=== PATIENT | female | born 1990 | race Two or more races ===

== ENCOUNTER 2017-07-16 12:58 | Emergency (ER) | payer SELFPAY ==
[~2017-07-16] VITALS: Ht 160 cm; Wt 77.0 kg
[2017-07-16] MEDS ORDERED: FLUO10CA25 PO (13:19)
[2017-07-16 14:35] VITALS: BP 110/71
== END 2017-07-17 03:31 | disposition left against medical advice (07) ==
LOC: ER 07-17 03:31
DX: Z53.21 Procedure and treatment not carried out due to patient leaving prior to being seen by health care provider (principal); F17.210 Nicotine dependence, cigarettes, uncomplicated